=== PATIENT | male | born 1995 | race Caucasian/White ===

== ENCOUNTER 2020-06-17 08:34 | Day surgery (SDC) | payer OTHER, SELFPAY ==
[~2020-06-17] VITALS: Ht 170.2 cm; Wt 99.8 kg
[~2020-06-17 08:34] MED LIST: LIDOCAINE 2% 100 MG/5 ML SYR IVP ONE; PROPOFOL 200 MG/20 ML VIAL IV ONE
[2020-06-17 09:41] LABS: BASOPHILS % (AUTO) 0.5 % (0.0-2.0); EOSINOPHILS # (AUTO) 0.1 K/uL (0-0.4); EOSINOPHILS % (AUTO) 1.8 % (0.0-4.0); HEMATOCRIT 47.5 % (36-52); HEMOGLOBIN 16.3 g/dL (12.0-18.0); LYMPHOCYTES # (AUTO) 1.8 K/uL (2.0-11.5); LYMPHOCYTES % (AUTO) 23.3 % (20.5-51.1); MEAN CORPUSCULAR HEMOGLOBIN 28 pg (27-31); MEAN CORPUSCULAR HGB CONC 34 g/dL (33-37); MEAN CORPUSCULAR VOLUME 82.4 fL (80-94); MONOCYTES # (AUTO) 0.5 K/uL (0.8-1.0); MONOCYTES % (AUTO) 6.3 % (1.7-9.3); NEUTROPHILS # (AUTO) 5.2 K/uL (1.8-7.7); NEUTROPHILS % (AUTO) 68.1 % (42.2-75.2); PLATELET COUNT (AUTO) 274 K/uL (140-450); RED BLOOD CELL COUNT(AUTO) 5.77 MIL/uL (4.20-6.10); RED CELL DISTRIBUTION WIDTH 13.6 % (11.6-13.7); WHITE BLOOD COUNT (AUTO) 7.7 K/uL (4.8-10.8)
[2020-06-17 10:06] LABS: ALBUMIN 4.6 g/dL (3.4-5.0); ANION GAP 12.8 (8-16); CARBON DIOXIDE 28.2 mmol/L (21-32); CREATININE 0.8 mg/dL (0.6-1.3); TOTAL BILIRUBIN 0.7 mg/dL (0.0-1.0)
== END 2020-06-17 12:45 | disposition home or self-care (01) ==
LOC: MDS 08:34 → MFCC 08:35 → MDS 12:45
PROVIDERS: ATTEND Internal Medicine Gastroenterology
DX: K52.9 Noninfective gastroenteritis and colitis, unspecified (principal); G43.A0 Cyclical vomiting, in migraine, not intractable; F32.9 Major depressive disorder, single episode, unspecified; Z79.899 Other long term (current) drug therapy; Z20.828 Contact with and (suspected) exposure to other viral communicable diseases
CPT/HCPCS: 36415; 43239; 71045; 80053; 85025; 88305; 88312; 88313; J2001; J2704; J7030; U0003

== ENCOUNTER 2020-07-08 08:19 | Day surgery (SDC) | payer OTHER, SELFPAY ==
[~2020-07-08] VITALS: Ht 170.2 cm; Wt 99.8 kg
[2020-07-08] MEDS ORDERED: METOCLOPRAMIDE 10 MG/2 ML INJ VIAL ONE (09:08)
[2020-07-08] MEDS ORDERED: MIDAZOLAM 2 MG/2 ML VIAL ONE (09:08)
[2020-07-08] MEDS ORDERED: ONDANSETRON 4 MG/2 ML VIAL ONE (09:08)
[2020-07-08] MEDS ORDERED: MEPERIDINE 25 MG/ML SYR ONE (09:08)
[2020-07-08] MEDS ORDERED: DEXAMETHASONE 4 MG/ML VIAL ONE (09:08)
[2020-07-08] MEDS ORDERED: PROPOFOL 200 MG/20 ML VIAL IV ONE (09:08)
[2020-07-08] MEDS ORDERED: LIDOCAINE 2% 100 MG/5 ML SYR IVP ONE (09:08)
[2020-07-08] MEDS ORDERED: KETAMINE 500 MG/5 ML VIAL ONE (09:37)
[2020-07-08] MEDS ORDERED: fentaNYL citrate 0.05 MG/ML VIAL IVP PRN (09:55)
[2020-07-08] MEDS ORDERED: ONDANSETRON 4 MG/2 ML VIAL IVP PRN (09:55)
[2020-07-08] MEDS ORDERED: MEPERIDINE 25 MG/ML SYR IVP PRN (09:55)
[2020-07-08] MEDS ORDERED: LACTATED RINGERS 1,000 ML IV SCH (09:55)
[2020-07-08] MEDS ORDERED: diphenhydrAMINE 50 MG/ML VIAL IVP PRN (09:55)
== END 2020-07-08 10:35 | disposition home or self-care (01) ==
LOC: MDS 08:19 → MFCC 08:21 → MDS 10:35
PROVIDERS: ATTEND Internal Medicine Gastroenterology
DX: K52.9 Noninfective gastroenteritis and colitis, unspecified (principal); G43.A0 Cyclical vomiting, in migraine, not intractable; Z79.899 Other long term (current) drug therapy; Z20.828 Contact with and (suspected) exposure to other viral communicable diseases
CPT/HCPCS: 45380; J1100; J2001; J2175; J2250; J2405; J2704; J2765; J7030; U0003